=== PATIENT | female | born 1950 | race Caucasian/White ===

== ENCOUNTER 2022-04-05 17:22 | Emergency (ER) | payer OTHER ==
[2022-04-05 18:23] LABS: Urine Blood 2+ (Negative); Urine Glucose Negative (Negative); Urine Protein 3+ (Negative); Urine Specific Gravity 1.025 (1.005-1.030); Urine pH 7.5 (5.0-7.0)
[2022-04-05] MEDS ORDERED: ONDANSETRON 4 MG/2 ML VIAL ONE (20:06)
[2022-04-05] MEDS ORDERED: NA CHLORIDE 0.9% 500 ML ONE (20:07)
[2022-04-05 20:53] LABS: Absolute Lymphocytes (CBC) 1.6 K/uL (0.7-4.9); Hematocrit 43.9 % (36.0-45.0); Lymphocytes % 9.7 % (15.3-44.8); MCV 86.7 fL (80-100); MPV 7.7 fL (7.6-11.3); RBC Red Blood Cell Count 5.06 M/uL (3.86-4.86)
[2022-04-05] MEDS ORDERED: MORPHINE 2 MG/ML SYR ONE (21:01)
[2022-04-05 21:10] LABS: Albumin 3.3 g/dL (3.4-5.0); Bilirubin Total 0.5 mg/dL (0.2-1.0); Potassium 3.8 mmol/L (3.5-5.1); Protein, Total 8.3 g/dL (6.4-8.2)
[2022-04-05 21:30] LABS: SARS-COV-2 RT PCR NEGATIVE (NEGATIVE)
[2022-04-05 22:10] LABS: Urine Bacteria <20 /HPF (<20); Urine Mucus Slight /HPF (None Seen); Urine RBC 21-50 /HPF (None Seen)
--- NOTE | 2022-04-05 22:44 | RAD REPORT ---
EXAM DESCRIPTION: CT - Abdomen Pelvis W Contrast - 04/05/2022 10:18 pm CLINICAL HISTORY: lower abdomen pain COMPARISON: No comparisons TECHNIQUE: Biphasic, helical CT imaging of the abdomen and pelvis was performed following 100 ml non -ionic IV contrast. Oral contrast: No. All CT scans are performed using dose optimization technique as appropriate and may include automated exposure control or mA/KV adjustment according to patient size. FINDINGS: No suspicious findings in the lung bases. The liver, spleen, and pancreas show no suspicious findings. Gallbladder and biliary tree are also wi thout suspicious finding. Symmetric renal function is present. A 3 centimeter simple cyst is present medial right kidney. No ob structing calculi. Left parapelvic cysts are present. There may be some minimal enlargement of the ri ght ureter. The right ureteritis is not entirely excluded. Pyelonephritis is not seen. No solid mass of either kidney. No adrenal abnormalities. No stomach or small bowel abnormality. No appendicitis findings. From cecum through descending colon there is no acute finding. Prominent sigmoid diverticulosis is present. Chapman of the mostly contracte d urinary bladder are thickened and shaggy. No air within the lumen of the urinary bladder. Abutting the superior dome of the urinary bladder and abutting the anterior margin of the uterus is a 6 x 5 x 3.5 centimeter irregular fluid collection. Chapman of this collection are thickened and shaggy. The flu id collection has a typical appearance for an abscess. There is stranding in the fatty tissues of the pelvis. No air or abnormal fluid collection within the endometrial cavity or cervix. No primary ovar darryl process. No free air or pneumatosis. Trace amounts of free fluid present. No hernia, mass or bu lky lymphadenopathy. No suspicious bony findings. No acute vascular findings. IMPRESSION: A 6 x 5 x 3.5 centimeter abscess is present in the lower central pelvis sitting on the s uperior margin of the urinary bladder abutting the anterior margin of the uterus. No findings to indicate a primary uterine or ovarian process. Urinary bladder cystitis may be present but is probably secondary. Cystitis does not typically result in abscess. Most likely scenario is perforated diverticulitis with abscess formation. The deep central position o f the abscess precludes percutaneous drainage.
--- NOTE | 2022-04-05 23:20 | ER ---
Nurse's Notes [facility] Name: Maria Victoria Morrison Age: 71 yrs Sex: Female : 1950 Arrival Date: 04/05/2022 Time: 17:27 Bed 9 Private MD: Diagnosis: Diverticulitis of intestine, part unspecified, with perforation and abscess Presentation: 04/05 18:01 Chief complaint: Patient states: "I think it's a UTI." Pt c/o pain to suprapubic area, ss burning with urination and frequency since last Friday. Coronavirus screen: Client denies travel out of the [place] in the last 14 days. Ebola Screen: Patient denies exposure to infectious person. Patient denies travel to an Ebola-affected area in the 21 days before illness onset. Initial Sepsis Screen: Does the patient meet any 2 criteria? No. Patient's initial sepsis screen is negative. Does the patient have a suspected source of infection? No. Patient's initial sepsis screen is negative. Risk Assessment: Do you want to hurt yourself or someone else? Patient reports no desire to harm self or others. Onset of symptoms was March 31, 2022. 18:01 Method Of Arrival: Ambulatory ss 18:01 Acuity: GELACIO 3 ss Triage Assessment: 19:00 General: Appears in no apparent distress. Behavior is calm, cooperative. Pain: kb3 Complains of pain in suprapubic area Pain does not radiate. Pain currently is 7 out of 10 on a pain scale. Quality of pain is described as crampy, pressure, Pain began Intermittent since September 2021, severe pain began this morning. GI: Abdomen is round non-distended, Bowel sounds present X 4 quads. Abd is soft Abdomen is tender to palpation in suprapubic area. : Reports cramping, Suprapubic pain in suprapubic area urgency, urinary frequency. Historical: - Allergies: 18:04 No Known Allergies; ss - Home Meds: 04/06 00:25 Lotrel 5-10 mg Oral cap 1 cap once daily [Active]; Wellbutrin SR 150 mg Oral SR12 1 tab kb3 once daily [Active]; - PMHx: 00:25 Hypertensive disorder; Depressive disorder; kb3 - PSHx: 00:25 None; kb3 - Immunization history:: Adult Immunizations up to date, Client reports receiving the 2nd dose of the Covid vaccine, Last tetanus immunization: up to date. - Social history:: Smoking status: Patient denies any tobacco usage or history of. Screenin/09 20:00 Abuse screen: Denies threats or abuse. Denies injuries from another. Nutritional kb3 screening: No deficits noted. Tuberculosis screening: No symptoms or risk factors identified. Fall Risk None identified. Assessment: 19:30 Reassessment: Patient appears in no apparent distress at this time. No changes from kb3 previously documented assessment. General: See triage note. 04/06 03:05 Reassessment: Patient and/or family updated on plan of care and expected duration. Pain ha1 level reassessed. Patient is alert, oriented x 3, equal unlabored respirations, skin warm/dry/pink. pain 5/10. awaiting transfer. 04:05 Reassessment: Patient and/or family updated on plan of care and expected duration. Pain ha1 level reassessed. Patient is alert, oriented x 3, equal unlabored respirations, skin warm/dry/pink. pain 8/10. notified in shift. 05:06 Reassessment: Patient and/or family updated on plan of care and expected duration. Pain ha1 level reassessed. Patient is alert, oriented x 3, equal unlabored respirations, skin warm/dry/pink. pain 4/10. 05:24 Reassessment: Patient and/or family updated on plan of care and expected duration. Pain ha1 level reassessed. Patient is alert, oriented x 3, equal unlabored respirations, skin warm/dry/pink. pt. wants to leave AMA. pt. refused to be transferred to the accepted hospital. it was explained that the hospital of pt.'s choice does not have any beds available. pt. decided to leave and drive to the hospital of her choice. pt. is accompanied by her . in shift explained the risk of leaving. Vital Signs: 04/05 18:01 BP 140 / 87; Pulse 105; Resp 16; Temp 100.3(O); Pulse Ox 97% on R/A; Weight 70.76 kg; ss Height 5 ft. 5 in. (165.10 cm); 20:46 BP 127 / 61; Pulse 99; Resp 16; Pulse Ox 98% ; kb3 22:00 BP 125 / 61; Pulse 95; Resp 18; Pulse Ox 96% ; kb3 23:00 BP 130 / 74; Pulse 92; Resp 18; Pulse Ox 95% ; kb3 04/06 00:00 BP 123 / 73; Pulse 94; Resp 20; Pulse Ox 99% ; kb3 03:05 BP 135 / 65; Pulse 91; Resp 18 S; Pulse Ox 95% on R/A; ha1 04:05 BP 130 / 65; Pulse 92; Resp 16 S; Pulse Ox 98% on R/A; ha1 05:00 BP 132 / 66; Pulse 90; Resp 17 S; Pulse Ox 98% on R/A; ha1 04/05 18:01 Body Mass Index 25.96 (70.76 kg, 165.10 cm) ss ED Course: 04/05 17:27 Patient arrived in ED. as 18:04 Triage completed. ss 18:04 Arm band placed on right wrist. ss 18:22 Urine collected: clean catch specimen, cloudy. tm3 18:55 Gianluca Reynoso PA is PHCP. cp 18:55 Guiliano Vega MD is Attending Physician. cp 20:00 Shonda Lyle, RN is Primary Nurse. kb3 20:00 Patient has correct armband on for positive identification. Placed in gown. Bed in low kb3 position. Call light in reach. Warm blanket given. 20:35 No provider procedures requiring assistance completed. Inserted saline lock: 22 gauge kb3 in right antecubital area, using aseptic technique. Blood collected. 20:46 Lactate w/ 2H reflex if indic. Sent. kb3 20:46 COVID-19/FLU A+B Sent. kb3 22:20 Abdomen In Process Unspecified. EDMS 23:27 [facility]. Spoke to Raym[facility]. mb4 23:39 [facility] declined due to capacity. mb4 23:41 [facility] contacted for transfer. mb4 23:46 Blood Culture Adult (2) Sent. kb3 23:46 Procalcitonin Sent. kb3 23:58 Sue with [facility] advised [facility] is available. will call after doctor consult. mb4 04/06 00:00 Inserted saline lock: 20 gauge in left wrist, using aseptic technique. Blood collected. kb3 03:40 Attending Physician role handed off by Giuliano Vega MD kdr 03:40 Jm Garcia MD is Attending Physician. kdr 05:30 IV discontinued, intact, bleeding controlled, No redness/swelling at site. Pressure ha1 dressing applied. Administered Medications: 04/05 20:30 Drug: Zofran (Ondansetron) 4 mg Route: IVP; Site: right antecubital; kb3 20:30 Drug: NS 0.9% 500 ml Route: IV; Rate: calculated rate; Site: right antecubital; kb3 22:30 Follow up: Response: No adverse reaction; IV Status: Completed infusion; IV Intake: kb3 500ml 21:05 Drug: morphine 2 mg Route: IVP; Infused Over: 4 mins; Site: right antecubital; kb3 22:00 Follow up: Response: No adverse reaction; Pain is decreased kb3 23:20 CANCELLED (Physician Discretion): Mefoxin (cefOXitin) 1 grams IVPB once over 30 mins; cp (mix in 50 mL NS) 23:20 CANCELLED (Physician Discretion): metroNIDAZOLE 500 mg 100 ml IVPB once over 30 mins cp 04/06 00:00 Drug: morphine 4 mg Route: IVP; Infused Over: 4 mins; Site: right antecubital; kb3 00:17 Drug: Zosyn (piperacillin-tazobactam) 3.375 grams Route: IVPB; Infused Over: 60 mins; kb3 Site: left wrist; 03:00 Follow up: Response: No adverse reaction; IV Status: Completed infusion; IV Intake: ha1 100ml 04:35 Drug: morphine 4 mg Route: IVP; Infused Over: 4 mins; Site: right antecubital; ha1 05:00 Follow up: Response: No adverse reaction; Pain is decreased; RASS: Alert and Calm (0) ha1 Medication: 04/05 20:00 VIS not applicable for this client. kb3 Intake: 22:30 IV: 500ml; Total: 500ml. kb3 04/06 03:00 IV: 100ml; Total: 600ml. ha1 Outcome: 04/05 23:19 ER care complete, transfer ordered by . jose 04/06 05:29 AMA AMA form signed ha1 Condition: stable Discharge instructions given to patient, family, Instructed on the need for transfer, Demonstrated understanding of instructions. 05:30 Patient left the ED. ha1 Signatures: Dispatcher [employer] EDGraham Thomas tm3 Jm Garcia MD MD kdr Martinez, Amelia as Smirch, Shelby, RN RN ss Gianluca Reynoso PA PA cp Baxter, Mackenzie mb4 Leticia Sorto RN RN ha1 Shonda Lyle RN RN kb3 Corrections: (The following items were deleted from the chart) 05:09 04:05 Reassessment: Patient and/or family updated on plan of care and expected ha1 duration. Pain level reassessed. Patient is alert, oriented x 3, equal unlabored respirations, skin warm/dry/pink. ha1
--- NOTE | 2022-04-05 23:20 | EDPHYS ---
Physician Documentation [facility] Name: Maria Victoria Morrison Age: 71 yrs Sex: Female : 1950 Arrival Date: 04/05/2022 Time: 17:27 Bed 9 Private MD: ED Physician Jm Garcia HPI: 04/05 19:05 This 71 yrs old Female presents to ER via Ambulatory with complaints of Pelvic Pain, cp Abdominal Pain, Urinary Problem. 19:05 The patient presents with pelvic pain, that is located in/on the suprapubic area, the cp pain does not radiate, urinary symptoms, dysuria, frequency. Onset: The symptoms/episode began/occurred 5 day(s) ago. 19:05 Associated signs and symptoms: Pertinent negatives: constipation, diarrhea, vaginal cp bleeding, vaginal discharge, vomiting. Severity of symptoms: in the emergency department the symptoms are unchanged, despite home interventions. Patient reports history of frequent UTIs and started having suprapubic pain 5 days ago with urinary symptoms. Has been taking Cipro w/o relief. Historical: - Allergies: 18:04 No Known Allergies; ss - Home Meds: 04/06 00:25 Lotrel 5-10 mg Oral cap 1 cap once daily [Active]; Wellbutrin SR 150 mg Oral SR12 1 tab kb3 once daily [Active]; - PMHx: 00:25 Hypertensive disorder; Depressive disorder; kb3 - PSHx: 00:25 None; kb3 - Immunization history:: Adult Immunizations up to date, Client reports receiving the 2nd dose of the Covid vaccine, Last tetanus immunization: up to date. - Social history:: Smoking status: Patient denies any tobacco usage or history of. ROS: 04/05 19:10 Constitutional: Negative for body aches, chills, poor PO intake. cp 19:10 Eyes: Negative for injury, pain, redness, and discharge. cp 19:10 ENT: Negative for drainage from ear(s), ear pain, sore throat, difficulty swallowing, difficulty handling secretions. 19:10 Cardiovascular: Negative for chest pain, edema, palpitations. 19:10 Respiratory: Negative for cough, shortness of breath, wheezing. 19:10 Abdomen/GI: Positive for abdominal pain, of the suprapubic area, Negative for vomiting, diarrhea, constipation, anorexia. 19:10 Back: Negative for pain at rest, pain with movement, radiated pain. 19:10 : Positive for urinary symptoms. 19:10 Neuro: Negative for altered mental status, dizziness, headache, syncope, weakness. 19:10 All other systems are negative. Exam: 19:15 Constitutional: The patient appears in no acute distress, alert, awake, cp non-diaphoretic, non-toxic, well developed, well nourished, uncomfortable. 19:15 Head/Face: Normocephalic, atraumatic. cp 19:15 Eyes: Periorbital structures: appear normal, Conjunctiva: normal, no exudate, no injection, Sclera: no appreciated abnormality, Lids and lashes: appear normal, bilaterally. 19:15 ENT: External ear(s): are unremarkable, Nose: is normal, Mouth: Lips: moist, Oral mucosa: pink and intact, moist, Posterior pharynx: Airway: no evidence of obstruction, patent. 19:15 Chest/axilla: Inspection: normal. 19:15 Cardiovascular: Rate: tachycardic, actual rate is 105 bpm, Rhythm: regular, Edema: is not appreciated, JVD: is not appreciated. 19:15 Respiratory: the patient does not display signs of respiratory distress, Respirations: normal, no use of accessory muscles, no retractions, labored breathing, is not present, Breath sounds: are clear throughout, no decreased breath sounds, no stridor, no wheezing. 19:15 Abdomen/GI: Inspection: abdomen appears normal, Bowel sounds: active, all quadrants, Palpation: soft, in all quadrants, mild abdominal tenderness, in the suprapubic area, right lower quadrant and left lower quadrant, rebound tenderness, is not appreciated, involuntary guarding, is not appreciated. 19:15 Back: pain, is absent, ROM is normal. 19:15 Neuro: Orientation: to person, place \T\ time. Mentation: is normal, Motor: moves all fours, strength is normal, Sensation: is normal, Gait: is steady, at a normal pace, without difficulty. Vital Signs: 18:01 BP 140 / 87; Pulse 105; Resp 16; Temp 100.3(O); Pulse Ox 97% on R/A; Weight 70.76 kg; ss Height 5 ft. 5 in. (165.10 cm); 20:46 BP 127 / 61; Pulse 99; Resp 16; Pulse Ox 98% ; kb3 22:00 BP 125 / 61; Pulse 95; Resp 18; Pulse Ox 96% ; kb3 23:00 BP 130 / 74; Pulse 92; Resp 18; Pulse Ox 95% ; kb3 12 00:00 BP 123 / 73; Pulse 94; Resp 20; Pulse Ox 99% ; kb3 03:05 BP 135 / 65; Pulse 91; Resp 18 S; Pulse Ox 95% on R/A; ha1 04:05 BP 130 / 65; Pulse 92; Resp 16 S; Pulse Ox 98% on R/A; ha1 05:00 BP 132 / 66; Pulse 90; Resp 17 S; Pulse Ox 98% on R/A; ha1 04/05 18:01 Body Mass Index 25.96 (70.76 kg, 165.10 cm) ss MDM: 04/05 18:58 Patient medically screened. cp 20:00 Differential diagnosis: appendicitis, urinary tract infection, diverticulitis, sepsis, cp kidney stone. 23:05 Data reviewed: vital signs, nurses notes, lab test result(s), radiologic studies, CT cp scan. 23:05 ED course: Discussed results of labs and CT abdomen/pelvis showing concern for cp diverticulitis with abscess. Patient requests attempt to contact DR Rob Herr for possible transfer and evaluation. 23:20 Physician consultation: was contacted at 23:15, regarding consult, patient's condition, cp spoke with DR Rob Herr, colorectal surgeon by request of patient, who will be happy to consult on patient if transfer is available to [facility] or [facility] in [facility]. 04/05 18:23 Order name: Urine Dipstick-Ancillary; Complete Time: 19:01 EDMS 04/05 19:01 Interpretation: Normal except: UKET 4+; UBLD 2+; UPH 7.5; UPROT 3+. cp 04/05 20:00 Order name: CBC with Diff; Complete Time: 21:20 cp 04/05 21:21 Interpretation: Normal except: WBC 16.30; RBC 5.06; NASREEN% 78.6; LYM% 9.7; NEUT A 12.8; cp MNA 1.8. 04/05 20:00 Order name: CMP; Complete Time: 21:20 cp 04/05 21:21 Interpretation: Normal except: NA 134; GFR 81; AST 12; TP 8.3; ALB 3.3; GLOB 5.0; A/G cp 0.7. 04/05 20:00 Order name: Lipase; Complete Time: 21:20 cp 04/05 21:41 Interpretation: Within normal limits: LIP 88. cp 04/05 20:00 Order name: Urine Microscopic Only; Complete Time: 22:51 cp 04/05 22:53 Interpretation: Normal except: URBC 21-50. 04/05 20:00 Order name: Lactate w/ 2H reflex if indic.; Complete Time: 21:20 cp 04/05 21:21 Interpretation: Reviewed. 04/05 20:00 Order name: CT Abd/Pelvis - IV Contrast Only cp 04/05 20:01 Order name: COVID-19/FLU A+B; Complete Time: 21:40 cp 04/05 21:40 Interpretation: Reviewed. 04/05 20:04 Order name: Abdomen ; Complete Time: 22:51 EDMS 04/05 22:54 Interpretation: Report reviewed. 04/05 23:20 Order name: Procalcitonin; Complete Time: 03:43 cp 04/05 23:20 Order name: Blood Culture Adult (2) cp 04/05 20:00 Order name: IV Saline Lock; Complete Time: 20:45 cp 04/05 20:00 Order name: Labs collected and sent; Complete Time: 20:45 cp Administered Medications: 20:30 Drug: Zofran (Ondansetron) 4 mg Route: IVP; Site: right antecubital; kb3 20:30 Drug: NS 0.9% 500 ml Route: IV; Rate: calculated rate; Site: right antecubital; kb3 22:30 Follow up: Response: No adverse reaction; IV Status: Completed infusion; IV Intake: kb3 500ml 21:05 Drug: morphine 2 mg Route: IVP; Infused Over: 4 mins; Site: right antecubital; kb3 22:00 Follow up: Response: No adverse reaction; Pain is decreased kb3 23:20 CANCELLED (Physician Discretion): Mefoxin (cefOXitin) 1 grams IVPB once over 30 mins; cp (mix in 50 mL NS) 23:20 CANCELLED (Physician Discretion): metroNIDAZOLE 500 mg 100 ml IVPB once over 30 mins cp 04/06 00:00 Drug: morphine 4 mg Route: IVP; Infused Over: 4 mins; Site: right antecubital; kb3 00:17 Drug: Zosyn (piperacillin-tazobactam) 3.375 grams Route: IVPB; Infused Over: 60 mins; kb3 Site: left wrist; 03:00 Follow up: Response: No adverse reaction; IV Status: Completed infusion; IV Intake: ha1 100ml 04:35 Drug: morphine 4 mg Route: IVP; Infused Over: 4 mins; Site: right antecubital; ha1 05:00 Follow up: Response: No adverse reaction; Pain is decreased; RASS: Alert and Calm (0) ha1 Disposition: 06:18 Co-signature as Attending Physician, Jm Garcia MD I agree with the assessment and kdr plan of care. Disposition Summary: 04/05/22 23:19 Transfer [facility]dered [facility] cp Reason: Higher level of care cp Condition: Stable cp Problem: new cp Symptoms: have improved cp Accepting Physician: Doctor(04/06/22 05:30) ha1 Diagnosis - Diverticulitis of intestine, part unspecified, with perforation and abscess cp Forms: - Medication Reconciliation Form cp - SBAR form cp Signatures: Dispatcher [employer] EDMS Jm Garcia MD MD [facility] Deya Rutledge RN RN Gianluca Villatoro PA PA cp Leticia Sorto RN RN ha1 Shonda Lyle, RN RN kb3 Corrections: (The following items were deleted from the chart) 04/05 23:20 22:56 Mefoxin (cefOXitin) 1 grams IVPB once over 30 mins; (mix in 50 mL NS) ordered. cp cp 23:20 22:56 metroNIDAZOLE 500 mg 100 ml IVPB once over 30 mins ordered. cp cp 04/06 01:27 01:25 Constitutional: Negative for body aches, chills, poor PO intake, cp cp 01:29 01:27 Constitutional: The patient appears in no acute distress, alert, awake, cp non-diaphoretic, non-toxic, well developed, well nourished, uncomfortable, cp 05:30 04/05 23:19 Doctor cp ha1
[2022-04-05] MEDS ORDERED: NA CHLORIDE 0.9% 100 ML IV ONE (23:48)
[2022-04-05] MEDS ORDERED: PIPERACIL/TAZO 3.375 GM VIAL IV ONE (23:49)
[2022-04-05] MEDS ORDERED: MORPHINE 4 MG/ML SYR ONE (23:58)
[2022-04-06] MEDS ORDERED: MORPHINE 4 MG/ML SYR ONE (04:33)
[2022-04-06 17:22] VITALS: TEMP 100.3
[2022-04-06 17:29] VITALS: O2SAT 98
[2022-04-06 17:30] VITALS: BP 132/66
== END 2022-04-06 05:30 | disposition short-term general hospital (02) ==
LOC: ER 17:22
DX: K57.20 Diverticulitis of large intestine with perforation and abscess without bleeding (principal); I10 Essential (primary) hypertension; Z20.822 Contact with and (suspected) exposure to COVID-19
CPT/HCPCS: 96365; 96361; 87040 ×2; 85025; 36415; 83605; 83690; 80053; 84145; 0240U; 74177; 96375; 99284; 96366; Q9967; J2543; J2270; J7040; J2405; 81003; 81015